=== PATIENT | female | born 1980 | race Caucasian/White ===

== ENCOUNTER 2017-01-14 02:18 | Emergency (ER) | payer SELFPAY ==
[~2017-01-14] VITALS: Ht 172.7 cm; Wt 59.4 kg
[2017-01-14] MEDS ORDERED: IV NS 0.9% 1,000 ML BAG IV ONE ×2 (02:30→04:00)
--- NOTE | 2017-01-14 02:40 | NUR ---
PT AT BEDSIDE. SUPERVISOR MENDING AT BEDSIDE FOR BLOOD DRAW.
[2017-01-14 03:04] LABS: BASOPHILS % (AUTO) 0.4 % (0.0-2.0); EOSINOPHILS # (AUTO) 0.1 /CMM (0.0-0.7); EOSINOPHILS % (AUTO) 0.6 % (0.0-6.0); HEMATOCRIT 38 % (33-45); HEMOGLOBIN 12.4 g/dL (11.5-14.8); LYMPHOCYTES % (AUTO) 16.7 % (20.0-44.0); MEAN CORPUSCULAR HEMOGLOBIN 31 PG (26.0-33.0); MEAN CORPUSCULAR HGB CONC 33 g/dl (31.0-36.0); MEAN CORPUSCULAR VOLUME 94 fL (82-100); MONOCYTES # (AUTO) 0.5 /CMM (0.1-1.30); MONOCYTES % (AUTO) 4.5 % (2.0-12.0); NEUTROPHILS # (AUTO) 9.4 /CMM (1.8-8.9); NEUTROPHILS % (AUTO) 77.8 % (43.0-81.0); PLATELET COUNT (AUTO) 182 /CMM (150-450); RDW COEFFICIENT OF VARIATION 12.5 (11.5-15.0); WHITE BLOOD COUNT (AUTO) 12.1 K/uL (4.3-11.0)
--- NOTE | 2017-01-14 03:05 | NUR ---
P TRANSPORTED TO RADIOLOGY FOR CT HEAD.
--- NOTE | 2017-01-14 03:17 | NUR ---
PT BACK FROM RADIOLOGY. PENDING CT HEAD RESULT.
[2017-01-14 03:18] LABS: ALANINE AMINOTRANSFERASE 74 U/L (12-78); ALBUMIN 3.3 g/dL (3.4-5.0); ALCOHOL, BLOOD < 3 mg/dL (0-0); ALKALINE PHOSPHATASE 48 U/L (46-116); ASPARTATE AMINOTRANSFERASE 75 U/L (15-37); BILIRUBIN,DIRECT 0.2 mg/dL (0.0-0.2); BILIRUBIN,TOTAL 0.4 mg/dL (0.2-1.0); CALCIUM, SERUM 8.7 mg/dL (8.5-10.1); CARBON DIOXIDE 23 mmol/L (21-32); CHLORIDE 102 mmol/L (98-107); CREATININE 1.4 mg/dL (0.6-1.3); GLUCOSE 316 mg/dL (74-106); POTASSIUM 3.5 mmol/L (3.5-5.1); SODIUM SERUM 142 mmol/L (136-145); TOTAL PROTEIN, SERUM 6.8 g/dL (6.4-8.2); UREA NITROGEN, BLOOD 18 mg/dL (7-18)
[2017-01-14 03:19] LABS: ACETAMINOPHEN 0 ug/ml (10-30); SALICYLATE 2.3 mg/dL (2.8-20.0)
--- NOTE | 2017-01-14 04:09 | NUR ---
PT REMAINS ASLEEP, EASILY AROUSABLE, NO ACUTE DISTRESS NOTED, RESP EVEN AND UNLABORED. PT S/O REMAINS AT BEDSIDE. NO PAIN OR DISCOMFORT NOTED AT THIS TIME. CALL [facility] WITHIN REACH. WILL CONTINUE TO MONITOR PT CLOSELY.
--- NOTE | 2017-01-14 05:15 | NUR ---
SWALLOW EVAL DONE. Pt WAS ABLE TO FOLLOW INSTRUCTIONS AND SWALLOW WATER WITHOUT COUGHING OR CHOKING OR HAVING WATER DRIBBLE OUT OF MOUTH. MADE AWARE.
[2017-01-14 05:17] LABS: APPEARANCE,URINE CLEAR (CLEAR); BILIRUBIN,URINE NEGATIVE (NEGATIVE); BLOOD, URINE 1+ Ery/uL (NEGATIVE); COLOR,URINE YELLOW (YELLOW); KETONES,URINE NEGATIVE (NEGATIVE); LEUKOCYTE ESTERASE ,URINE NEGATIVE (NEGATIVE); NITRITE, URINE NEGATIVE (NEGATIVE); PROTEIN,URINE 1+ mg/dl (NEGATIVE); UGLUCOSE 3+ mg/dL (NEGATIVE)
[2017-01-14 05:24] LABS: BACTERIA,URINE None seen /HPF (None Seen); SQUAMOUS EPITHELIAL CELL,UR Few /HPF (None Seen); WBC,URINE 0-2 /HPF (0-3)
--- NOTE | 2017-01-14 05:35 | NUR ---
PT REMAINS ASLEEP, EASILY AROUSABLE, NO ACUTE DISTRESS NOTED, RESP EVEN AND UNLABORED. PT S/O REMAINS AT BEDSIDE. CALL [facility] WITHIN REACH.
--- NOTE | 2017-01-14 05:58 | NUR ---
ER AT BEDSIDE TO RE-EVAL PT. PENDING DISPOSITION.
--- NOTE | 2017-01-14 07:10 | NUR ---
REPORT GIVEN TO CATINA ELLIS RN, NUZHAT.
--- NOTE | 2017-01-14 08:27 | NUR ---
Pt now awake, no complaints, no distress noted. Gave pt juice.
[2017-01-14 08:32] VITALS: BP 101/67
--- NOTE | 2017-01-14 09:48 | NUR ---
Removed IV intact, site okay, bandaged. Gave pt RX and d/c instructions, verbalized understanding.
== END 2017-01-14 09:50 | disposition home or self-care (01) ==
LOC: ER 02:22
DX: T40.601A Poisoning by unspecified narcotics, accidental (unintentional), initial encounter (principal); Y92.89 Other specified places as the place of occurrence of the external cause; I10 Essential (primary) hypertension
CPT/HCPCS: 36415; 70450; 80048; 80076; 80305; 80329; 81001; 82962; 84703; 85025; 93005; 96360; 96361; 99285; A4606; G0480 ×2; J7030 ×2; Z7610; 81000-TC

== ENCOUNTER 2017-03-03 13:36 | Emergency (ER) | payer SELFPAY ==
[~2017-03-03] VITALS: Ht 175.3 cm; Wt 49.9 kg
--- NOTE | 2017-03-03 13:40 | NUR ---
BIBRA 90 FOR OVERDOSE WITH [place] DRUGS, 3MG NARCAN GIVEN IN THE FIELD NAD NOTED, VSS, RESP EVEN AND UNLABORED, PT PUT ON HOSPITAL GOWN AND MONITOR, WAITING FOR MD SWANN.
--- NOTE | 2017-03-03 14:11 | NUR ---
urine sent to lab
[2017-03-03] MEDS ORDERED: IV NS 0.9% 1,000 ML BAG IV ONE (15:00)
--- NOTE | 2017-03-03 18:16 | NUR ---
Patient is resting comfortably in bed with eyes closed. Easily aroused. VSS
[2017-03-03 19:18] VITALS: BP 101/65
--- NOTE | 2017-03-03 19:19 | NUR ---
Patient discharged to home in stable condition. Written and verbal after care instructions given. Patient verbalizes understanding of instruction.IV removed. Catheter intact and site benign. Pressure and 4x4 applied to site. No bleeding noted.
== END 2017-03-03 19:20 | disposition home or self-care (01) ==
LOC: ER 13:38
DX: T40.1X1A Poisoning by heroin, accidental (unintentional), initial encounter (principal); F15.10 Other stimulant abuse, uncomplicated; I10 Essential (primary) hypertension; Y92.89 Other specified places as the place of occurrence of the external cause
CPT/HCPCS: 80305; 84703; 96360; 99284; A4606; J7030; Z7610

== ENCOUNTER 2019-03-30 16:09 | Emergency (ER) | payer OTHER, BC ==
[~2019-03-30] VITALS: Ht 167.6 cm; Wt 60.8 kg
[2019-03-30] MEDS ORDERED: KETOROLAC TROMETHAMINE INJ 30 MG/ML VIAL IV ONE (16:30)
[2019-03-30] MEDS ORDERED: ONDANSETRON HCL/PF 4 MG/2 ML VIAL IVP ONE (16:30)
[2019-03-30] MEDS ORDERED: IV NS 0.9% 1,000 ML BAG IV ONE (16:30)
[2019-03-30] MEDS ORDERED: BUSP10TA35 PO (16:31)
[2019-03-30] MEDS ORDERED: NORG1TAB11 PO (16:31)
[2019-03-30] MEDS ORDERED: GABA-534 PO (16:31)
[2019-03-30] MEDS ORDERED: BUPR-319 PO (16:31)
[2019-03-30] MEDS ORDERED: LAMO25TA10 PO (16:31)
[2019-03-30] MEDS ORDERED: SPIR100T5 PO (16:31)
[2019-03-30] MEDS ORDERED: ONDANSETRON HCL/PF 4 MG/2 ML VIAL ONE (16:39)
[2019-03-30] MEDS ORDERED: KETOROLAC TROMETHAMINE 15 MG/ML VIAL ONE (16:39)
[2019-03-30 16:41] LABS: BASOPHILS % (AUTO) 0.7 % (0.0-2.0); HEMATOCRIT 42 % (33-45); LYMPHOCYTES # (AUTO) 2.1 /CMM (0.8-4.8); LYMPHOCYTES % (AUTO) 28.3 % (20.0-44.0); MEAN CORPUSCULAR HGB CONC 33 g/dl (31.0-36.0); MEAN CORPUSCULAR VOLUME 90 fL (82-100); MONOCYTES # (AUTO) 0.6 /CMM (0.1-1.30); MONOCYTES % (AUTO) 7.5 % (2.0-12.0); NEUTROPHILS # (AUTO) 4.7 /CMM (1.8-8.9); NEUTROPHILS % (AUTO) 61.5 % (43.0-81.0); PLATELET COUNT (AUTO) 178 /CMM (150-450); RED BLOOD CELL COUNT(AUTO) 4.66 MIL/uL (4.0-5.2); WHITE BLOOD COUNT (AUTO) 7.6 K/uL (4.3-11.0)
[2019-03-30 16:52] LABS: CALCIUM, SERUM 8.7 mg/dL (8.5-10.1); CARBON DIOXIDE 27 mmol/L (21-32); CHLORIDE 107 mmol/L (98-107); GLUCOSE 112 mg/dL (74-106); POTASSIUM 4.1 mmol/L (3.5-5.1); SODIUM SERUM 143 mmol/L (136-145); UREA NITROGEN, BLOOD 9 mg/dL (7-18)
[2019-03-30 16:58] LABS: ALANINE AMINOTRANSFERASE 26 U/L (12-78); ALBUMIN 3.5 g/dL (3.4-5.0); ALKALINE PHOSPHATASE 43 U/L (46-116); ASPARTATE AMINOTRANSFERASE 24 U/L (15-37); BILIRUBIN,DIRECT 0.1 mg/dL (0.0-0.2); BILIRUBIN,TOTAL 0.2 mg/dL (0.2-1.0); LIPASE 169 U/L (73-393); TOTAL PROTEIN, SERUM 6.7 g/dL (6.4-8.2)
--- NOTE | 2019-03-30 16:58 | NUR ---
BIB RA C/O WITNESSED TONIC CLONIC SEIZURE AT HOME. WAS TOLD SHE HIT HER HEAD, BUT HAS NO RECOLLECTION OF THIS EVENT. AOX4, VSS, RR EVEN AND UNLABORED ON RA. DENIES SOB, DIZZINESS, WEAKNESS, N/V. SKIN INTACT, WARM, DRY. NO ACUTE DISTRESS NOTED. ON MONITOR AND READY FOR EVAL.
--- NOTE | 2019-03-30 17:03 | NUR ---
PT IS A HARD STICK. DELAY IN GIVING MEDS
[2019-03-30 17:13] LABS: APPEARANCE,URINE Clear (CLEAR); BILIRUBIN,URINE Negative (NEGATIVE); BLOOD, URINE Negative Ery/uL (NEGATIVE); COLOR,URINE Yellow (YELLOW); KETONES,URINE Negative (NEGATIVE); LEUKOCYTE ESTERASE ,URINE Negative (NEGATIVE); NITRITE, URINE Negative (NEGATIVE); PROTEIN,URINE Negative (NEGATIVE); UGLUCOSE Negative (NEGATIVE); UROBILINOGEN,URINE 0.2 EU/dL (0.2)
--- NOTE | 2019-03-30 17:15 | NUR ---
IV LINE ESTABLISHED, MEDS GIVEN, IVF INFUSING
--- NOTE | 2019-03-30 18:53 | NUR ---
IV removed. Catheter intact and site benign. Pressure and 4x4 applied to site. No bleeding noted.Patient discharged to home in stable condition. Written and verbal after care instructions given. Patient verbalizes understanding of instruction.
[2019-03-30 18:54] VITALS: BP 127/86
== END 2019-03-30 18:54 | disposition home or self-care (01) ==
LOC: ER 16:10
DX: R56.9 Unspecified convulsions (principal); I10 Essential (primary) hypertension; Z98.890 Other specified postprocedural states; Z79.899 Other long term (current) drug therapy
CPT/HCPCS: 36415; 70450; 71045; 80048; 80076; 81001; 83690; 84484; 84703; 85025; 93005; 96374; 96375; 99285; J1885; J2405; J7030; 81000-TC